=== PATIENT | male | born 2000 | race Caucasian/White ===

== ENCOUNTER 2019-06-13 15:22 | Emergency (ER) | payer OTHER ==
[~2019-06-13] VITALS: Ht 177.8 cm; Wt 86.0 kg
[2019-06-13 15:22] VITALS: TEMP 97.9
[2019-06-13 15:45] LABS: HEMATOCRIT 39.4 % (36.0-47.0); HEMOGLOBIN 13.4 g/dl (12.5-16.1); MEAN CELL VOLUME 87 fl (80.0-95.0); MEAN CORPUSCULAR HEMOGLOBIN 30 pg (26.0-32.0); MEAN CORPUSCULAR HGB CONC 34 g/dl (33.0-37.0); MEAN PLATELET VOLUME 10.5 fl (7.4-10.4); PLATELET COUNT 268 K/mm3 (130-400); RED BLOOD COUNT 4.54 M/mm3 (4.20-5.60); REDCELL DISTRIBUTION WIDTH-CV 11.7 % (11.5-14.5)
[2019-06-13 15:47] LABS: INR 1.1 (0.8-3.0)
[2019-06-13 15:49] LABS: PARTIAL THROMBOPLASTIN TIME 29.2 SECONDS (26.0-37.0)
[2019-06-13 15:51] LABS: ALBUMIN 3.7 gm/dL (3.5-5.0); BILIRUBIN,TOTAL 0.6 mg/dL (0.0-1.0); CALCIUM 7.7 mg/dL (8.4-10.2); CREATININE, serum 1.48 (0.66-1.25); POTASSIUM 3.3 mmol/L (3.4-5.0); TOTAL PROTEIN 5.7 gm/dL (6.4-8.2)
[2019-06-13 16:09] LABS: LYMPHOCYTE 61 % (20.0-51.0); MYELOCYTE 3 % (0-0); NEUTROPHILS 32 % (42.0-75.2)
[2019-06-13 16:10] LABS: PLATELET ESTIMATE NORMAL (NORMAL)
[2019-06-13 16:16] LABS: TROPONIN-I 0.067 ng/mL (0.000-0.035)
[2019-06-13 16:38] VITALS: BP 110/68; PULSE 90
== END 2019-06-13 16:38 | disposition short-term general hospital (02) ==
LOC: COL.ER 15:22
PROVIDERS: Emergency Medicine
DX: I49.01 Ventricular fibrillation (principal)
CPT/HCPCS: J0282; J0330; J3010; J3480; J7030